=== PATIENT | male | born 2000 | race African-American/Black ===

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

== ENCOUNTER 2020-01-02 21:53 | Emergency (ER) | payer OTHER ==
[~2020-01-02] VITALS: Ht 180.3 cm; Wt 77.1 kg
[2020-01-02 22:02] VITALS: Ht 180.3 cm; Wt 77.1 kg
[2020-01-02 22:13] VITALS: BP 147/90
== END 2020-01-02 22:13 | disposition home or self-care (01) ==
LOC: ED 21:53
DX: S70.361A Insect bite (nonvenomous), right thigh, initial encounter (principal); J45.909 Unspecified asthma, uncomplicated; W57.XXXA Bitten or stung by nonvenomous insect and other nonvenomous arthropods, initial encounter; Y93.89 Activity, other specified; Y92.89 Other specified places as the place of occurrence of the external cause; Y99.8 Other external cause status